=== PATIENT | male | born 1980 | race Caucasian/White ===

== ENCOUNTER 2020-04-30 10:28 | Outpatient (CLI) | payer BC, SELFPAY ==
[2020-04-30 23:56] LABS: SARS-CoV-2 RNA PCR Negative
== END 2020-04-30 10:29 | disposition home or self-care (01) ==
LOC: CHSLAB 10:35
PROVIDERS: PCP Internal Medicine; Visit Provider Internal Medicine
DX: Z20.828 Contact with and (suspected) exposure to other viral communicable diseases (principal)
CPT/HCPCS: 87635; C9803; U0003

== ENCOUNTER 2021-03-19 11:05 | Outpatient (CLI) | payer BC, SELFPAY ==
[2021-03-19 11:56] LABS: SARS-CoV-2 RNA PCR Positive (Negative)
== END 2021-03-19 11:06 | disposition home or self-care (01) ==
LOC: CHSLAB 11:09
PROVIDERS: PCP Internal Medicine; Visit Provider Internal Medicine
DX: U07.1 COVID-19 (principal)
CPT/HCPCS: C9803; U0003; U0005